=== PATIENT | male | born 2000 | race Caucasian/White ===

== ENCOUNTER 2022-12-05 17:09 | Emergency (ER) | payer OTHER ==
[~2022-12-05] VITALS: Ht 170.2 cm; Wt 72.7 kg
[2022-12-05] MEDS ORDERED: HYDROcodone/acetaminophen 5mg/325mg tablet PO ONE (18:35)
--- NOTE | 2022-12-05 18:46 | NUR ---
Dr. Calix is with the patient.
[2022-12-05] MEDS ORDERED: ibuprofen 200mg tablet PO ONE (19:05)
--- NOTE | 2022-12-05 19:06 | NUR ---
Per Dr. Calix, she will order Ibuprofen and will also need orthopedically impaired teacher to come in for splinting.
[2022-12-05 20:39] VITALS: BP 116/62; PULSE 90; RESP 16; TEMP 97.3; O2SAT 99
== END 2022-12-05 20:46 | disposition home or self-care (01) ==
LOC: ER 17:10
DX: S82.832A Other fracture of upper and lower end of left fibula, initial encounter for closed fracture (principal); F17.210 Nicotine dependence, cigarettes, uncomplicated; W19.XXXA Unspecified fall, initial encounter; Y93.89 Activity, other specified; Y92.89 Other specified places as the place of occurrence of the external cause; Y99.8 Other external cause status
CPT/HCPCS: 29515; 73610; 99283